=== PATIENT | male | born 1965 | race Caucasian/White ===

== ENCOUNTER 2018-06-27 12:47 | Outpatient (CLI) | payer MEDICAID ==
[~2018-06-27 12:47] MED LIST: CALC0.253 PO; FURO80TA3 PO; HYDR-4070 PO; LABE300T2 PO; MINO10TA16 PO; NO HOME MEDS; ROPI1TAB2 PO; SEVE800T8 PO
== END 2018-06-27 23:59 | disposition home or self-care (01) ==
LOC: CARD DIAG 12:47
PROVIDERS: ATTEND Internal Medicine Critical Care Medicine
DX: I50.9 Heart failure, unspecified (principal); Z53.9 Procedure and treatment not carried out, unspecified reason

== ENCOUNTER 2021-03-09 14:40 | Outpatient (CLI) | payer MEDICAID | END 2021-03-09 23:59 | disposition home or self-care (01) | LOC: CARD DIAG 14:40 | PROVIDERS: ATTEND Physician Assistant | DX: I08.8 Other rheumatic multiple valve diseases (principal); I50.9 Heart failure, unspecified | CPT/HCPCS: 93306 ==

== ENCOUNTER 2023-08-13 09:54 | Outpatient (CLI) | payer MEDICAID ==
[~2023-08-13 09:54] MED LIST changes: -HYDR-4070 PO; +HYDR50TA46 PO; -LABE300T2 PO; +LABE300T4 PO
== END 2023-08-13 23:59 | disposition home or self-care (01) ==
LOC: CARD DIAG 09:54
PROVIDERS: ATTEND Physician Assistant
DX: I08.8 Other rheumatic multiple valve diseases (principal); R94.31 Abnormal electrocardiogram [ECG] [EKG]; Z86.79 Personal history of other diseases of the circulatory system; Z95.1 Presence of aortocoronary bypass graft
CPT/HCPCS: 93306